=== PATIENT | female | born 1985 | race Caucasian/White ===

== ENCOUNTER 2017-08-11 10:29 | Emergency (ER) | payer OTHER ==
[2017-08-11 11:58] VITALS: BP 112/68
[2017-08-11] MEDS ORDERED: Ibuprofen TAB* 400 MG PO ONE (12:04)
--- NOTE | 2017-08-11 12:28 | RAD ---
HISTORY: Left ankle, status post injury COMPARISONS: None VIEWS: 3, Frontal, lateral, and oblique views of the left ankle FINDINGS: BONE DENSITY: Normal. BONES: There is no displaced fracture. A calcaneal enthesophyte is noted. JOINTS: There is no arthropathy. There is tibiotalar joint effusion. ALIGNMENT: There is no dislocation. SOFT TISSUES: Unremarkable. OTHER FINDINGS: None. IMPRESSION: JOINT EFFUSION. NO ACUTE OSSEOUS INJURY. IF SYMPTOMS PERSIST, RECOMMEND REPEAT IMAGING.
--- NOTE | 2017-08-11 13:07 | UC ---
Lower Extremity/Ankle HPI - HPI Summary HPI Summary: Inverted L ankle 2 days ago while walking, has had lots of pain and swelling in that ankle since then. No prior fx or sx. Otherwise healthy. - History of Current Complaint Chief Complaint: UCLowerExtremity Stated Complaint: LEFT FOOT INJURY Time Seen by Provider: 08/11/17 12:46 Hx Obtained From: Patient Hx Last Menstrual Period: 1st week of Nov. ?: No Onset/Duration: Sudden Onset Severity Initially: Moderate Severity Currently: Mild Aggravating Factor(s): Standing, Ambulation Alleviating Factor(s): Rest, Elevation Able to Bear Weight: Yes - Allergies/Home Medications Allergies/Adverse Reactions: Allergies Allergy/AdvReac Type Severity Reaction Status Date / Time No Known Allergies Allergy Verified 08/11/17 11:58 PMH/Surg Hx/FS Hx/Imm Hx Previously Healthy: Yes - Surgical History Surgical History: Yes Surgery Procedure, Year, and Place: GALL BLADDER REMOVAL 2010; BTL; tubal clamps - Family History Known Family History: Positive: Hypertension - Social History Occupation: Employed Full-time Lives: Alone Alcohol Use: Rare Substance Use Type: None Smoking Status (MU): Never Smoked Tobacco - Immunization History Most Recent Tetanus Shot: WITHIN 5 YEARS Review of Systems Constitutional: Negative Skin: Negative Eyes: Negative ENT: Negative Respiratory: Negative Cardiovascular: Negative Gastrointestinal: Negative Genitourinary: Negative Motor: Negative Neurovascular: Negative Musculoskeletal: Arthralgia, Edema Neurological: Negative Psychological: Negative Is Patient Immunocompromised?: No All Other Systems Reviewed And Are Negative: Yes Physical Exam Triage Information Reviewed: Yes Appearance: Well-Appearing, No Pain Distress, Well-Nourished Vital Signs: Initial Vital Signs Temp 98.3 F 08/11/17 11:50 Pulse 78 08/11/17 11:50 Resp 20 08/11/17 11:50 BP 112/68 08/11/17 11:50 Vital Signs Reviewed: Yes Eye Exam: Normal Eyes: Positive: Conjunctiva Clear ENT Exam: Normal ENT: Positive: Normal ENT inspection, Hearing grossly normal, Pharynx normal, TMs normal Dental Exam: Normal Neck exam: Normal Respiratory Exam: Normal Respiratory: Positive: Chest non-tender, Lungs clear, Normal breath sounds, No respiratory distress, No accessory muscle use Cardiovascular Exam: Normal Cardiovascular: Positive: RRR, No Murmur Musculoskeletal: Positive: Strength Intact, ROM Intact Neurological Exam: Normal Psychological Exam: Normal Skin Exam: Normal Lower Extremity Course/Dx - Differential Dx/Diagnosis Provider Diagnoses: L ankle sprain Discharge - Discharge Plan Condition: Stable Disposition: HOME Patient Education Materials: Ankle Sprain (ED), RICE Therapy (ED) Forms: *Work Release Referrals: Nish Bright MD [Primary Care Provider] - Additional Instructions: Take 2-3 ibuprofen (400-600mg) up to 3 times per day as needed for pain. Ice and elevation can be helpful after being active or a long period of time on your feet. You can return to controlled exercises at the gym once you are walking comfortably. See your primary care provider if you have not had marked improvement within 2 weeks.
== END 2017-08-11 13:16 | disposition home or self-care (01) ==
LOC: UCCORT 10:29
DX: S93.402A Sprain of unspecified ligament of left ankle, initial encounter (principal); X50.1XXA Overexertion from prolonged static or awkward postures, initial encounter; Y93.01 Activity, walking, marching and hiking; Y92.9 Unspecified place or not applicable; Z90.49 Acquired absence of other specified parts of digestive tract
CPT/HCPCS: 99213; A9270-GY; G0463

== ENCOUNTER 2018-02-26 18:18 | Emergency (ER) | payer OTHER ==
[2018-02-26 18:53] VITALS: BP 106/70
--- NOTE | 2018-02-26 19:30 | UC ---
Throat Pain/Nasal Gerson HPI - HPI Summary HPI Summary: 32 y/o female presents to the urgent care c/o sore throat for the past 2-3 days. This afternoon she started with body aches, fever and worsening of sore throat. Her son was + for strep last week. Pt states pin w/ swallowing is 8/ 10. She took Tylenol 500mg PO this morning. Pt denies rash, neck pain, abdominal pain, cough, SOB, chest pain, N/V/D - History of Current Complaint Chief Complaint: UCRespiratory Stated Complaint: SORE THROAT, FEVER Time Seen by Provider: 02/26/18 19:29 Hx Obtained From: Patient Hx Last Menstrual Period: 02/02/18 ?: No Onset/Duration: Gradual Onset, Lasting Days - 4 days, Still Present, Worse Since - today Severity: Moderate Pain Intensity: 8 Pain Scale Used: 0-10 Numeric Cough: None Associated Signs & Symptoms: Positive: Dysphagia, Fever - Epiglottits Risk Factors Epiglottis Risk Factors: Negative - Allergies/Home Medications Allergies/Adverse Reactions: Allergies Allergy/AdvReac Type Severity Reaction Status Date / Time No Known Allergies Allergy Verified 02/26/18 18:53 Home Medications: Home Medications Phendimetrazine Tartrate 70 mg PO TID 02/26/18 [History Confirmed 02/26/18] PMH/Surg Hx/FS Hx/Imm Hx Previously Healthy: Yes - Pt denies PMHX - Surgical History Surgical History: Yes Surgery Procedure, Year, and Place: GALL BLADDER REMOVAL 2010; BTL; tubal clamps - Family History Known Family History: Positive: Hypertension, Diabetes - Social History Occupation: Employed Full-time Lives: With Family Alcohol Use: Occasionally Substance Use Type: None Smoking Status (MU): Never Smoked Tobacco - Immunization History Most Recent Tetanus Shot: WITHIN 5 YEARS Review of Systems Constitutional: Fever, Chills Skin: Negative Eyes: Negative ENT: Sore Throat Respiratory: Negative Cardiovascular: Negative Gastrointestinal: Negative Genitourinary: Negative Motor: Negative Neurovascular: Negative Musculoskeletal: Negative Neurological: Negative Psychological: Negative Is Patient Immunocompromised?: No All Other Systems Reviewed And Are Negative: Yes Physical Exam - Summary Physical Exam Summary: VITAL SIGNS: Reviewed. GENERAL: Patient is a well developed and nourished female who is sitting comfortable in the examining table. Patient is not in any acute respiratory distress. HEAD AND FACE: No signs of trauma. No ecchymosis, hematomas or skull depressions. No sinus tenderness. EYES: PERRLA, EOMI x 2, No injected conjunctiva, no nystagmus. No photophobia. EARS: Hearing grossly intact. Ear canals and tympanic membranes are within normal limits. MOUTH: Positive pharynx with erythema, no exudates, palatal petechiae. B/L tonsillar enlargement with no exudate. Uvula in midline. NECK: Supple, trachea is midline, Positive anterior cervical lymphadenopathy, no JVD, no carotid bruit, no c-spine tenderness, neck with full ROM. No meningeal signs, no Kernig's or brudzinskis signs. CHEST: Symmetric, no tenderness at palpation LUNGS: Clear to auscultation bilaterally. No wheezing or crackles. CVS: Regular rate and rhythm, S1 and S2 present, no murmurs or gallops appreciated. ABDOMEN: Soft, non-tender. No signs of distention. No rebound no guarding, and no masses palpated. Bowel sounds are normal. EXTREMITIES: FROM in all major joints, no edema, no cyanosis or clubbing. NEURO: Alert and oriented x 3. No acute neurological deficits. Speech is normal and follows commands. SKIN: Dry and warm Triage Information Reviewed: Yes Vital Signs: Initial Vital Signs Temp 100.8 F 02/26/18 18:47 Pulse 101 02/26/18 18:47 Resp 16 02/26/18 18:47 BP 106/70 02/26/18 18:47 Pulse Ox 100 02/26/18 18:47 Throat Pain/Nasal Course/Dx - Course Course Of Treatment: 32 y/o female presents to the urgent care c/o sore throat for the past 2-3 days. This afternoon she started with body aches, fever and worsening of sore throat. Her son was + for strep last week. Pt states pin w/ swallowing is 8/10. She took Tylenol 500mg PO this morning. Pt denies rash, neck pain, abdominal pain, cough, SOB, chest pain, N/V/D. Hx obtained. Pt febrile w/ pharyngitis on examination. Rapid strep ordered: negative. Pt given Ibuprofe PO at the clinic to alleviate symptoms. Pt tolerated well medication. Pt w/ Viral pharyngitis.Pt Rx ibuprofen PO to alleviates symptoms of pain and swelling. Advised on hand washing to avoid spreading. Pt advised to rest, eat well and avoid strenuous exercise. If symptoms do not improve or worsen advised to return to the urgent care or f/u with her PCP for further evaluation and treatment. Pt understood and agreed - Differential Dx/Diagnosis Differential Diagnosis/HQI/PQRI: Laryngitis, Mononucleosis, Pharyngitis, Tonsillitis, URI Provider Diagnoses: 1- Viral pharyngitis. 2-fever. Discharge - Sign-Out/Discharge Documenting (check all that apply): Discharge/Admit/Transfer - D/C home - Discharge Plan Condition: Stable Disposition: HOME Prescriptions: Ibuprofen TAB* [Motrin TAB* 800 MG] 800 mg PO Q6H PRN #20 tab PRN Reason: Sore Throat Patient Education Materials: Pharyngitis (ED) Forms: *Work Release Referrals: Nish Bright MD [Primary Care Provider] - 3 Days Additional Instructions: 1-Please take ibuprofen PO q6-8hrs prn as instructed after meals to alleviate pain and swelling. Increase fluid intake, eat well, rest and avoid strenuous exercise 2-If symptoms do not improve or worsen please return to the urgent care or f/u with your PCP 2-3 days for further evaluation and treatment. - Billing Disposition and Condition Condition: STABLE Disposition: HOME
[2018-02-26] MEDS ORDERED: Ibuprofen TAB* 400 MG PO ONE (20:04)
== END 2018-02-26 20:17 | disposition home or self-care (01) ==
LOC: UCCORT 18:18
DX: J02.8 Acute pharyngitis due to other specified organisms (principal); R50.9 Fever, unspecified; Z20.89 Contact with and (suspected) exposure to other communicable diseases
CPT/HCPCS: 87651; 99212; A9270-GY; G0463

== ENCOUNTER 2018-04-23 11:35 | Emergency (ER) | payer OTHER ==
[2018-04-23 11:54] VITALS: BP 112/64
--- NOTE | 2018-04-23 12:17 | UC ---
Throat Pain/Nasal Gerson HPI - HPI Summary HPI Summary: Pt with sinus congestion and facial fullness. Pt with left ear fullness. No sore throat No cp, sob, abd pain, No cough. No fever chills. Little relief with OTC meds. Pt's medications reviewed this visit - History of Current Complaint Chief Complaint: UCHeadaaliza Stated Complaint: SINUS COMPLAINT Time Seen by Provider: 04/23/18 12:04 Hx Obtained From: Patient Hx Last Menstrual Period: 03/20/18 ?: No Pain Intensity: 9 - Allergies/Home Medications Allergies/Adverse Reactions: Allergies Allergy/AdvReac Type Severity Reaction Status Date / Time No Known Allergies Allergy Verified 04/23/18 11:54 Home Medications: Home Medications Aspirin/Acetaminophen/Caffeine [Excedrin Migraine Caplet] 2 each PO Q8H PRN [History Confirmed 04/23/18] PMH/Surg Hx/FS Hx/Imm Hx Previously Healthy: Yes - Surgical History Surgical History: Yes Surgery Procedure, Year, and Place: GALL BLADDER REMOVAL 2010; BTL; tubal clamps - Family History Known Family History: Positive: Hypertension, Diabetes - Social History Occupation: Employed Full-time Lives: With Family Alcohol Use: Occasionally Substance Use Type: None Smoking Status (MU): Never Smoked Tobacco - Immunization History Most Recent Tetanus Shot: WITHIN 5 YEARS Review of Systems ENT: Ear Ache, Sinus Congestion All Other Systems Reviewed And Are Negative: Yes Physical Exam - Summary Physical Exam Summary: Vital Signs Reviewed: Yes A+Ox3, no distress Eyes: Conjunctiva Clear FATUMA EOM intact and full ENT: Hearing grossly normal left tm scant fluid no erythema no buldge right TM wnl turbinates inflammed + PND no erythema no exudate + TTP max sinuses L>R max neck: supple Respiratory: Positive: No respiratory distress, No accessory muscle use CTA throughout no w/r Cardiovascular: skin color reflect adequate perfusion RRR nl s1 s2 Musculoskeletal Exam: NGUYEN x 4 without difficulty Neurological: Positive: Alert, ambulatory without difficulty Psychological: Positive: Normal Response To Family Skin: Positive: no rash, no ecchymosis Triage Information Reviewed: Yes Vital Signs: Initial Vital Signs Temp 97.8 F 04/23/18 11:49 Pulse 65 04/23/18 11:49 Resp 18 04/23/18 11:49 BP 112/64 04/23/18 11:49 Pulse Ox 99 07/26/18 11:49 Throat Pain/Nasal Course/Dx - Course Course Of Treatment: Pt with sinus pressure. Exam c/w sinusutis fluid left ear. abx. nasal spray. decongesant. hydrate. return precuations. secretion precautions - Differential Dx/Diagnosis Provider Diagnoses: sinusitis Discharge - Sign-Out/Discharge Documenting (check all that apply): Patient Departure - Discharge Plan Condition: Stable Disposition: HOME Prescriptions: Amoxicillin PO (*) [Amoxicillin 500 MG CAP*] 500 mg PO Q12H #14 cap Fluticasone NASAL SPRAY 50MCG* [Flonase NASAL SPRAY 50MCG*] 2 spray BOTH NARES DAILY #1 btl Patient Education Materials: Sinusitis (ED) Forms: *Gen. Provider Communication Referrals: Nish Bright MD [Primary Care Provider] - Additional Instructions: - Stay well hydrated. Drink plenty of non-alcoholic, non-caffinated beverages. - Okay to take Excedrin as current. Okay to take tylenol every 6-8 hours for discomfort. Take with food. Do NOT take for more than 4-5 days. - These infections are spread by secretions - do NOT share eating or drinking utensils - clean items you share with other people such as cell phones, computer mouse, TV remote, computer tablets,etc. Once you have been antibiotics for 2 days, change your toothbrush and your pillowcase. - get plenty of restful sleep - okay to take over the counter decongestant and cough medication - use nasal spray as prescribed - contact your doctor or return with questions or concerns - Billing Disposition and Condition Condition: STABLE Disposition: Home
== END 2018-04-23 12:39 | disposition home or self-care (01) ==
LOC: UCCORT 11:35
DX: J32.9 Chronic sinusitis, unspecified (principal)
CPT/HCPCS: 99211; G0463